=== PATIENT | male | born 1945 | race Caucasian/White ===

== ENCOUNTER 2019-09-30 08:56 | Outpatient (CLI) | payer MEDICARE, BC ==
[2019-09-30 15:20] LABS: #Eosinphils 0.2 thou/uL (0.0-0.7); #Lymphocytes 2.6 thou/uL (1.20-3.40); #Monocytes 0.7 thou/uL (0.11-0.59); #Neutrophils 4.1 thou/uL (1.40-6.50); %Basophils 0.4 % (0.0-1.0); %Eosinophils 2.2 % (0.0-10.0); %Lymphocytes 34.2 % (21.0-51.0); %Monocytes 9.1 % (0.0-10.0); %Neutrophils 54.1 % (42.0-75.0); Hemoglobin 15.2 g/dL (14.0-18.0); Mean Corpuscular HGB CONC 33.7 g/dL (32.0-36.0); Mean Corpuscular Hemoglobin 31.3 pg (27.0-31.0); Mean Corpuscular Volume 92.8 fL (78.0-98.0); Mean Platelet Volume 10.3 fL (7.4-10.4); Platelet Count 172 thou/uL (130-400); RBC Distribution Width 11.7 % (11.5-14.5); Red Blood Cell (RBC) Count 4.85 mill/uL (4.70-6.10); White Blood Cell (WBC) Count 7.6 thou/uL (4.8-10.8)
[2019-09-30 15:26] LABS: Prothrombin Time 13.1 SEC (12.0-14.7)
[2019-09-30 15:31] LABS: Bacteria/HPF None Seen HPF (None Seen); Bilirubin Negative (Negative); Blood, Urine Negative (Negative); Clarity Clear (Clear); Glucose, Urine (Dipstick) Normal (Negative); Leukocyte Negative Leu/uL (Negative); Nitrite Negative (Negative); Protein, Urine (Dipstick) Negative (Neg-Trace); RBC/HPF 0-3 HPF (0-3); Squamous Epithelial 0-3 HPF (0-3); Urobilinogen Normal mg/dL (Less than 2); WBC/HPF 0-3 HPF (0-3)
[2019-09-30 15:43] LABS: Anion Gap 12 mmol/L (10-20); BUN (Urea Nitrogen) 13 mg/dL (8.4-25.7); Calc. Creatinine Clearance 0 mL/min (70-130); Calcium 9.7 mg/dL (7.8-10.44); Carbon Dioxide 26 mmol/L (23-31); Chloride 105 mmol/L (98-107); Estimated GFR-MDRD Greater than 90; Glucose 95 mg/dL (83-110); Potassium 4.2 mmol/L (3.5-5.1); Sodium 139 mmol/L (136-145)
--- NOTE | 2019-09-30 17:00 | EKG ---
Test Reason : Blood Pressure : / mmHG Vent. Rate : 061 BPM Atrial Rate : 061 BPM P-R Int : 190 ms QRS Dur : 096 ms QT Int : 412 ms P-R-T Axes : 034 004 052 degrees QTc Int : 414 ms Normal sinus rhythm Possible Anterior infarct , age undetermined may be secondary to lead placement When compared with ECG of 13-SEP-2011 08:44, No significant change was found Confirmed by DR. Bebe SCOTT (3) on 09/30/2019 4:59:55 PM Referred By: IERO Confirmed By:DR. Bebe SCOTT
== END 2019-09-30 08:57 | disposition home or self-care (01) ==
LOC: LABBT 08:56
PROVIDERS: ATTEND Orthopaedic Surgery
DX: Z01.818 Encounter for other preprocedural examination (principal); M17.12 Unilateral primary osteoarthritis, left knee
CPT/HCPCS: 80048; 81001; 85025; 85610; 87081; 93005; 93010

== ENCOUNTER 2019-10-11 07:22 | Day surgery (SDC) | payer MEDICARE, BC ==
[2019-09-30 12:44] VITALS: BMI 29.3
[2019-10-11] MEDS ORDERED: Tranexamic Acid 1,000 MG/10 ML VIAL ONE ×2 (08:03→12:08)
[2019-10-11] MEDS ORDERED: Vancomycin 1.5 GRAM/300 ML BAG 1.5 GM/300 ML BAG ONE (08:04)
[2019-10-11] MEDS ORDERED: Sodium Chloride 0.9% 100 ML ONE (08:04)
[2019-10-11] MEDS ORDERED: Fentanyl 100 MCG/2 ML VIAL ONE ×3 (08:30→12:27)
[2019-10-11] MEDS ORDERED: Midazolam HCl 2 mg/2 ml Vial ONE (08:30)
[2019-10-11] MEDS ORDERED: Ondansetron PF 4 MG/2 ML Vial IVP PRN ×2 (08:52→11:51)
[2019-10-11] MEDS ORDERED: Ropivacaine HCl/PF 250 ML in Premix Bag 1 BAG NERVE BLCK SCH (08:52)
[2019-10-11] MEDS ORDERED: Promethazine HCl 25 MG/ML VIAL IM PRN ×2 (08:52→11:51)
[2019-10-11] MEDS ORDERED: traMADol HCl 50 MG TAB PO PRN ×2 (08:52)
[2019-10-11] MEDS ORDERED: HYDROcodone/Acetaminophen 10/325 mg Tablet PO PRN (08:52)
[2019-10-11] MEDS ORDERED: Zolpidem Tartrate 5 MG TAB PO PRN ×2 (08:52→11:51)
[2019-10-11] MEDS ORDERED: Fentanyl 100 MCG/2 ML VIAL SLOW IVP PRN (08:53)
[2019-10-11] MEDS ORDERED: Acetaminophen 325 MG TAB PO PRN ×2 (08:55→11:51)
[2019-10-11] MEDS ORDERED: Bupivacaine PF 0.5% 30 ML VIAL ONE (09:37)
[2019-10-11] MEDS ORDERED: methylPREDNISolone Acetate 40 mg/ml Vial ONE (10:07)
[2019-10-11] MEDS ORDERED: Lidocaine 1% (PF) 30 ML VIAL ONE (10:07)
[2019-10-11] MEDS ORDERED: diphenhydrAMINE 25 MG CAP PO PRN (11:51)
[2019-10-11] MEDS ORDERED: Tranexamic Acid 1,000 MG in Sodium Chloride 0.9% 100 ML IVPB SCH (12:00)
[2019-10-11] MEDS: Ketorolac Tromethamine 30 MG/ML VIAL IVP SCH ×3 (13:14→23:31)
[2019-10-11] MEDS: Sodium Chloride 0.9% 1,000 ML IV SCH ×2 (13:16→22:26)
[2019-10-11] MEDS ORDERED: Dexamethasone 20 MG/5 ML VIAL ONE (13:36)
[2019-10-11] MEDS ORDERED: PROPOFOL 200 MG/20 ML VIAL ONE (13:36)
[2019-10-11] MEDS ORDERED: Ketorolac Tromethamine 30 MG/ML VIAL ONE (13:36)
[2019-10-11] MEDS ORDERED: Ondansetron PF 4 MG/2 ML Vial ONE (13:36)
[2019-10-11] MEDS ORDERED: Bupivacaine HCl 0.5%/Epinephrine 1:200,000/PF 30 ml Vial ONE (13:36)
[2019-10-11] MEDS ORDERED: Ropivacaine 0.2% HCl/PF (40 MG/20 ML VIAL) ONE (13:36)
[2019-10-11] MEDS ORDERED: Lidocaine 1% PF 5 ML VIAL ONE (13:36)
[2019-10-11] MEDS: HYDROcodone/Acetaminophen 10/325 mg Tablet PO PRN (16:05)
[2019-10-11 16:23] LABS: #Lymphocytes 0.7 thou/uL (1.20-3.40); #Monocytes 0.2 thou/uL (0.11-0.59); #Neutrophils 12.6 thou/uL (1.40-6.50); %Basophils 0.1 % (0.0-1.0); %Eosinophils 0.2 % (0.0-10.0); %Lymphocytes 5.4 % (21.0-51.0); %Monocytes 1.4 % (0.0-10.0); Hemoglobin 14.8 g/dL (14.0-18.0); Mean Corpuscular Hemoglobin 32.1 pg (27.0-31.0); Mean Corpuscular Volume 94.6 fL (78.0-98.0); Platelet Count 185 thou/uL (130-400); RBC Distribution Width 11.6 % (11.5-14.5); Red Blood Cell (RBC) Count 4.62 mill/uL (4.70-6.10); White Blood Cell (WBC) Count 13.5 thou/uL (4.8-10.8)
--- NOTE | 2019-10-11 16:30 | CON ---
DATE OF CONSULTATION: 10/11/2019 TIME OF ASSESSMENT: 1500 hours. REASON FOR CONSULTATION: Medical management. HISTORY OF PRESENT ILLNESS: Mr. Del Rio is a pleasant 73-year-old gentleman who is status post left total knee replacement which was done today by Dr. Cardenas. The patient has had bilateral knee pain and previously received injections without improvement. He apparently underwent x-ray imaging that showed bilateral bone on bone arthritis in patellofemoral and medial compartments with varus deformity. The patient underwent surgery and is being referred to us for medical management. At this present time, he has no complaints. His pain is under good control. He denies having any nausea or vomiting. Denies any chest pain. No shortness of breath. No headaches or dizziness. Denies any abdominal pain. No urinary symptoms. All other review of systems negative. PAST MEDICAL HISTORY: Hypercholesterolemia. PAST SURGICAL HISTORY: 1. Left knee scope, meniscectomy 09/13/2011. 2. Left total knee replacement. SOCIAL HISTORY: The patient denies any history of tobacco use, alcohol consumption, or illicit drug use. He lives with his and is fully independent at baseline. ALLERGIES: NO KNOWN DRUG ALLERGIES. CURRENT MEDICATIONS: 1. Lipitor. 2. Indomethacin. 3. Lactobacillus. 4. Celoron-3 fatty acid/fish oil. 5. Cinnamon bark. PHYSICAL EXAMINATION: GENERAL: The patient appears well developed, well nourished, is in no acute distress. VITAL SIGNS: Temperature 97.7, pulse 74, respirations 16, O2 saturation 96% on room air, and blood pressure 143/90. HEENT: Normocephalic and atraumatic. Pupils are equal, round, reactive to light. Sclerae without icterus. Oropharynx is clear. NECK: Supple without lymphadenopathy. LUNGS: Clear to auscultation bilaterally without wheezes, rales, rhonchi. CARDIAC: Regular rate and rhythm. ABDOMEN: Soft, nontender, nondistended. Normoactive bowel sounds present. No guarding or rigidity. No renal angle tenderness. EXTREMITIES: No lower leg edema. Peripheral pulses present and equal bilaterally. LABORATORY DATA: Labs on September 30, 2019 showed the following; white count 7.6, hemoglobin 15, hematocrit 45, platelets 172, neutrophils 54.1%. PT 13.1, INR 1. Sodium 139, potassium 4.2, BUN 13, creatinine 0.82, GFR greater than 90. Urinalysis at that time was unremarkable. IMPRESSION AND PLAN: Mr. Del Rio is a very pleasant 73-year-old gentleman who is status post left total knee replacement. He has been referred for medical management. His comorbidities include only hypercholesterolemia. He has no history of coronary artery disease or hypertension. No diabetes. States he feels very good and is without any complaints. His pain is currently under good control. We will go ahead and resume his home medications. The patient is on antibiotics with cefazolin. We will obtain laboratory studies today. For gastrointestinal prophylaxis, we will start famotidine 20 mg b.i.d. The patient on mechanical SCDs for deep venous thrombosis prophylaxis. CODE STATUS: Full. Surrogate decision maker is his , Cristy Del Rio. The patient's case discussed with attending who agrees with plan of care as above. Thank you for this consultation. We will continue to follow this patient with you. Job ID: [id number]
[2019-10-11 16:44] LABS: Anion Gap 11 mmol/L (10-20); BUN (Urea Nitrogen) 14 mg/dL (8.4-25.7); Calc. Creatinine Clearance 120 mL/min (70-130); Calcium 9.7 mg/dL (7.8-10.44); Carbon Dioxide 29 mmol/L (23-31); Chloride 103 mmol/L (98-107); Estimated GFR-MDRD 90; Glucose 186 mg/dL (83-110); Potassium 4.1 mmol/L (3.5-5.1); Sodium 139 mmol/L (136-145)
[2019-10-11] MEDS: CEFAZOLIN 2 GM in Premix Bag 1 BAG IVPB SCH (18:02)
--- NOTE | 2019-10-11 18:13 | OP ---
DATE OF PROCEDURE: 10/11/2019 POSTOPERATIVE DIAGNOSIS: Bilateral knee arthritis, left worse than right. POSTOPERATIVE DIAGNOSIS: Bilateral knee arthritis, left worse than right. PROCEDURES PERFORMED: 1. Left total knee replacement using TreeRing pinless navigation. 2. Right knee corticosteroid injection. YARN REWINDER: Errol Garcia PA-C COMPLICATIONS: None. ANESTHESIA: The patient had general anesthetic as well as a preoperative block on the left side. IMPLANTS: To the left knee, [place] [employer] total knee system. The femur was a size 8 cruciate retaining femur. We used a size 7 primary tibial baseplate. We used a 7 x 11 mm CS X3 tibial bearing and asymmetric 38 x 11 X3 patella. DISPOSITION: He did go to recovery room in stable condition. INDICATIONS: This is an active 73-year-old male who has failed nonoperative treatment at this juncture and wishes for left knee replacement and a right knee injection. DESCRIPTION OF PROCEDURE: After all appropriate consent forms were explained and signed, he was taken back to the operative room and at this time was given general anesthetic. Once the level of anesthesia was appropriate, the right knee was cleaned with alcohol and 80 mg of Depo-Medrol with plain lidocaine was injected into the right knee without complication. Band-Aid was applied. A well-padded tourniquet was placed on the left leg, and the leg was then prepped and draped in standard surgical fashion. The limb was exsanguinated and tourniquet taken up to 300 mmHg. Midline incision was made with a 10 blade down through the skin and subcutaneous tissue. Bovie electrocautery was used to coagulate any brisk venous bleeding. A new blade was used to make a medial parapatellar arthrotomy. Small subperiosteal release was performed medially and excess fat pad was removed. The knee was flexed up to gain access to the femur. The femur was navigated and distal femoral resection was made. Epicondylar access was used to align our sizing jig and this was pinned in place. We sized our femur to be a size 8 cruciate retaining femur. 4:1 cutting block was applied and pinned. Anterior and posterior chamfer cuts were then made. We navigated out our proximal tibia and made our proximal tibial resection. Spreaders were used to remove any posterior osteophytes off the back of the femur as well as remaining meniscal tissue. A long alignment jimmie was then used to achieve correct rotation of our tibial baseplate and a size 7 primary tibial baseplate was chosen. This was pinned in place. We trialed the polyethylene and a 7 x 11 mm CS X3 tibial bearing polyethylene gave us full extension and good stability throughout range of motion. Two towel clips and a saw were used to cut our patella. Three lug nuts were drilled and asymmetric 38 x 11 X3 patella was trialed which sat nicely in the trochlear groove. We then drilled our femur and punched our tibia. All components were removed. The knee was thoroughly irrigated and dried. Cement was mixed into the cement gun on the back table. Components were then placed. The knee was held out in full extension until the cement had dried. All excess bone cement was removed. Multiple #2 Vicryl stitches as well as a Quill were used to close our extensor mechanism. 0 Quill followed by a running Monoderm was then used to close the skin. Surgicel glue was then used on the skin. Once this had dried, soft tissue dressing was applied to the limb, tourniquet was let down, and the toes pinked up nicely. The patient was then awakened and taken to the recovery room in stable condition. All counts were correct at the end of the case. The patient did receive preoperative IV antibiotics. The patient was injected with Marcaine for postoperative pain relief. Job ID: [id number] [facility]
[2019-10-11] MEDS ORDERED: Vancomycin 1.5 GRAM/300 ML BAG 1.5 GM in Premix Bag 1 BAG IVPB SCH (21:00)
[2019-10-11] MEDS: Aspirin 81 mg Enteric Coated Tablet PO SCH (21:28)
[2019-10-11] MEDS: Atorvastatin Calcium 40 MG TAB PO SCH (21:28)
[2019-10-11] MEDS: Famotidine/PF 20 mg/2ml Vial SLOW IVP SCH (21:28)
[2019-10-12] MEDS: CEFAZOLIN 2 GM in Premix Bag 1 BAG IVPB SCH (02:25)
[2019-10-12] MEDS: Ketorolac Tromethamine 30 MG/ML VIAL IVP SCH ×4 (05:15→23:26)
[2019-10-12 05:22] LABS: #Monocytes 1.3 thou/uL (0.11-0.59); #Neutrophils 12.7 thou/uL (1.40-6.50); %Eosinophils 0.1 % (0.0-10.0); %Lymphocytes 6.8 % (21.0-51.0); %Monocytes 8.5 % (0.0-10.0); %Neutrophils 84.6 % (42.0-75.0); Hemoglobin 12.9 g/dL (14.0-18.0); Mean Corpuscular Hemoglobin 31.2 pg (27.0-31.0); Mean Corpuscular Volume 94.5 fL (78.0-98.0); Mean Platelet Volume 9.5 fL (7.4-10.4); Platelet Count 173 thou/uL (130-400); RBC Distribution Width 11.5 % (11.5-14.5); Red Blood Cell (RBC) Count 4.12 mill/uL (4.70-6.10)
[2019-10-12 05:39] LABS: Anion Gap 13 mmol/L (10-20); BUN (Urea Nitrogen) 14 mg/dL (8.4-25.7); Calc. Creatinine Clearance 127 mL/min (70-130); Calcium 9.2 mg/dL (7.8-10.44); Carbon Dioxide 22 mmol/L (23-31); Chloride 107 mmol/L (98-107); Estimated GFR-MDRD Greater than 90; Glucose 171 mg/dL (83-110); Potassium 4.6 mmol/L (3.5-5.1); Sodium 137 mmol/L (136-145)
[2019-10-12 07:25] LABS: Hemoglobin A1c 5.5 % (4.0-6.0)
[2019-10-12] MEDS: Sodium Chloride 0.9% 1,000 ML IV SCH ×2 (07:39→19:19)
[2019-10-12] MEDS: Multivitamin W/ Minerals 1 TAB PO SCH (09:00)
[2019-10-12] MEDS: Ferrous Gluconate 324 MG TAB PO SCH ×2 (09:00→20:37)
[2019-10-12] MEDS: Senokot S 8.6-50 MG TAB PO SCH ×2 (09:00→20:36)
[2019-10-12] MEDS: Aspirin 81 mg Enteric Coated Tablet PO SCH ×2 (09:01→20:37)
[2019-10-12] MEDS: HYDROcodone/Acetaminophen 10/325 mg Tablet PO PRN ×4 (09:01→23:26)
[2019-10-12] MEDS: Famotidine/PF 20 mg/2ml Vial SLOW IVP SCH ×2 (09:01→20:36)
--- NOTE | 2019-10-12 11:26 | PDOC.HOSPP ---
- Subjective Encounter Date: 10/12/19 Encounter Time: 09:15 Subjective: no pain in his knee feels better not a diabetic, prior A1c was normal per patient - Objective Vital Signs & Weight: Vital Signs (12 hours) Temp Pulse Resp BP Pulse Ox 10/12/19 08:39 99.4 F 75 14 139/83 96 10/12/19 03:53 97.7 F 77 16 133/72 96 10/11/19 23:58 98.8 F 82 16 125/74 93 L Weight Weight 235 lb I&O: 10/11/19 10/12/19 10/13/19 06:59 06:59 06:59 Intake Total 1100 Output Total 1000 Balance 100 Result Diagrams: 10/12/19 05:05 10/12/19 05:05 Hospitalist ROS - Medication Medications: Active Medications Generic Name Dose Route Start Last Admin Trade Name Freq PRN Reason Stop Dose Admin Hydrocodone Bitart/Acetaminophen 2 tab 10/11/19 08:52 10/12/19 09:01 [place] 10/325 PO 2 tab Q4H PRN Administration PAIN (4-6) Aspirin 81 mg 10/11/19 21:00 10/12/19 09:01 Ecotrin PO 81 mg BID BARBIE Administration Atorvastatin Calcium 40 mg 10/11/19 21:00 10/11/19 21:28 Lipitor PO 40 mg HS BARBIE Administration Famotidine 20 mg 10/11/19 21:00 10/12/19 09:01 Pepcid SLOW IVP 20 mg Q12HR BARBIE Administration Ferrous Gluconate 324 mg 10/12/19 09:00 10/12/19 09:00 Fergon PO 324 mg BID BARBIE Administration Sodium Chloride 1,000 mls @ 100 mls/hr 10/11/19 12:00 10/12/19 07:39 Normal Saline 0.9% IV Not Given .Q10H BARBIE Iron/Minerals/Multivitamins 1 tab 10/12/19 09:00 10/12/19 09:00 Theragran M PO 1 tab DAILY BARBIE Administration Ketorolac Tromethamine 15 mg 10/11/19 12:00 10/12/19 05:15 Toradol IVP 10/13/19 06:01 15 mg Q6HR BARBIE Administration Senna/Docusate Sodium 2 tab 10/12/19 09:00 10/12/19 09:00 Senokot S PO 2 tab BID BARBIE Administration - Exam General Appearance: awake alert Eye: PERRL, anicteric sclera ENT: no oropharyngeal lesions, moist mucosa Neck: supple, no JVD Heart: RRR, no murmur Respiratory: no wheezes, no rales Gastrointestinal: soft, non-tender, non-distended, normal bowel sounds Extremities: no cyanosis, no edema Extremities - other findings: left knee post op changes Neurological: cranial nerve grossly intact, no focal deficits Psychiatric: normal affect, A&O x 3 Hosp A/P (1) Status post total knee replacement, left Code(s): Z96.652 - PRESENCE OF LEFT ARTIFICIAL KNEE JOINT Status: Acute (2) Dyslipidemia Code(s): E78.5 - HYPERLIPIDEMIA, UNSPECIFIED Status: Chronic (3) Glucose intolerance Code(s): E74.39 - OTHER DISORDERS OF INTESTINAL CARBOHYDRATE ABSORPTION Status : Suspected - Plan Hb A1c is normal, likely mild glucose intolerance with stress/surgery hemostable continue lipitor, asp bid, ropivacaine nr block, fentanyl, norco, ultram prn mobilize per ortho adv
--- NOTE | 2019-10-12 14:32 | PRG ---
DATE OF SERVICE: 10/12/2019 SUBJECTIVE: Mu is a 73-year-old male, postop day #1 left total knee arthroplasty. He is doing very well. His pain is incredibly well controlled, and he has ambulated up to 180 feet at this point. OBJECTIVE: VITAL SIGNS: Temperature 97.8, pulse 74, respiratory rate 16 and nonlabored, O2 saturation 97% on room air, and blood pressure is 145/73. GENERAL: He is alert and oriented to person, place, time, and situation; responsive and appropriate with examiner. EXTREMITIES: His incision is clean. There is no strikethrough. He is neurovascularly intact in the left lower extremity. LABORATORY DATA: Hemoglobin and hematocrit were 12.9 and 38.9. IMPRESSION: A 73-year-old male, postop day #1 left total knee arthroplasty, doing very well. PLAN: Continue current care. Expect discharge to home tomorrow. Job ID: [id number]
[2019-10-12] MEDS: Atorvastatin Calcium 40 MG TAB PO SCH (20:37)
[2019-10-13] MEDS: Sodium Chloride 0.9% 1,000 ML IV SCH ×2 (03:43→13:18)
[2019-10-13 05:01] LABS: Hemoglobin 11.3 g/dL (14.0-18.0); Mean Corpuscular HGB CONC 33.9 g/dL (32.0-36.0); Mean Corpuscular Volume 94.3 fL (78.0-98.0); Mean Platelet Volume 9.6 fL (7.4-10.4); Platelet Count 131 thou/uL (130-400); RBC Distribution Width 11.7 % (11.5-14.5); Red Blood Cell (RBC) Count 3.54 mill/uL (4.70-6.10); White Blood Cell (WBC) Count 9.6 thou/uL (4.8-10.8)
[2019-10-13] MEDS: Ketorolac Tromethamine 30 MG/ML VIAL IVP SCH (05:58)
[2019-10-13] MEDS: Ferrous Gluconate 324 MG TAB PO SCH (08:46)
[2019-10-13] MEDS: Aspirin 81 mg Enteric Coated Tablet PO SCH (08:46)
[2019-10-13] MEDS: Multivitamin W/ Minerals 1 TAB PO SCH (08:47)
[2019-10-13] MEDS: Senokot S 8.6-50 MG TAB PO SCH (08:47)
[2019-10-13] MEDS: Famotidine/PF 20 mg/2ml Vial SLOW IVP SCH (08:47)
[2019-10-13] MEDS: HYDROcodone/Acetaminophen 10/325 mg Tablet PO PRN ×2 (08:51→13:05)
--- NOTE | 2019-10-13 11:43 | DIS ---
DATE OF ADMISSION: 10/11/2019 DATE OF DISCHARGE: 10/13/2019 PRIMARY CARE PHYSICIAN: [facility] Call admission. DISCHARGE DISPOSITION: Home. PRIMARY DISCHARGE DIAGNOSIS: Status post left total knee replacement. SECONDARY DISCHARGE DIAGNOSES: Osteoarthritis, dyslipidemia. PRIMARY PROCEDURE/OPERATION: Left total knee replacement. RADIOLOGICAL INVESTIGATION: None. SIGNIFICANT LABORATORY DATA: WBC 9.6, hemoglobin 11.3, platelet 131. Sodium 137, potassium 4.6, BUN 14, creatinine 0.79, calcium 9.2, hemoglobin A1c 5.5. DISCHARGE MEDICATIONS: 1. Pain medication will defer to primary team. 2. Lipitor 40 mg p.o. at bedtime. 3. Cinnamon 500 mg p.o. daily. 4. Probiotic one capsule daily. 5. Fish oil 1000 mg p.o. daily. 6. Ibuprofen 200 mg p.o. q.6 hourly p.r.n. 7. Aspirin 81 mg p.o. b.i.d. as per primary team for DVT prophylaxis. CONTRAINDICATION: None. CODE STATUS: Full code. INPATIENT CONSERVATION WORKER: Dr. Cardenas was primary while in hospital. Sound Team was consulted for medical management. TEST RESULTS PENDING ON DISCHARGE: None. ALLERGIES: NO KNOWN DRUG ALLERGIES. DISCHARGE PLAN: Posthospital, the patient has appointment with Dr. Rashad Cardenas on October 20, 2019 at 1:15 p.m. The patient will make appointment with primary care physician. Home health arranged. HOSPITAL COURSE: A 73-year-old male with above-mentioned medical problem, who was admitted by Dr. Rashad Cardenas for left total knee replacement which was done on October 11, 2019. Postoperatively, hospitalist group was consulted for medical comanagement. The patient's medical problem remained stable. While in the hospital, he had leukocytosis that was also improved by the time of discharge without any signs of infection. He was having some elevated blood sugar, but hemoglobin A1c was normal and that is why we provided to watch on diet and follow up with primary care physician. At this point, he did not require any medication. The patient is seen and examined at bedside today. Plan of care discussed with the patient and his . The patient is planned for discharge later on today. PHYSICAL EXAMINATION: VITAL SIGNS: Today, temperature 98.4, pulse 77, respiratory rate 14, saturation 97% on room air, blood pressure 133/78. Weight 235 pounds. GENERAL: The patient is currently alert and awake. No acute distress. HEENT: Head; normocephalic, atraumatic. Eyes; pupils round, reactive to light. Extraocular muscle intact. ENT, oropharynx within normal limits. Moist mucous membranes. NECK: Supple. No JVD. No meningeal signs of irritation. LUNGS: Clear to auscultation without any rhonchi or rales. CARDIAC: S1 and S2, regular without any murmur. No gallop. No rub. ABDOMEN: Soft and benign. Bowel sounds present. Nontender. Nondistended. No organomegaly. No mass. EXTREMITIES: No edema. NEUROLOGIC: Nonfocal examination. The patient is planned for discharge today and we will sign off. Job ID: [id number]
--- NOTE | 2019-10-13 12:05 | PDOC.HOSPP ---
- Subjective Encounter Date: 10/13/19 Encounter Time: 08:00 Subjective: Patient seen and examined. No new complaints. No overnight events - Objective Vital Signs & Weight: Vital Signs (12 hours) Temp Pulse Resp BP Pulse Ox 10/13/19 08:46 97 10/13/19 07:46 98.4 F 77 14 133/78 97 10/13/19 03:36 98.3 F 70 16 133/81 96 Weight Admit Weight 235 lb Weight 235 lb I&O: 10/12/19 10/13/19 10/14/19 06:59 06:59 06:59 Intake Total 1100 750 Output Total 1000 400 Balance 100 350 Result Diagrams: 10/13/19 04:33 10/12/19 05:05 Hospitalist ROS - Review of Systems ENT: denies: ear pain, ear discharge, nose pain, nose discharge, nose congestion , mouth pain, mouth swelling, throat pain, throat swelling, other Respiratory: denies: cough, dry, shortness of breath, hemoptysis, SOB with excertion, pleuritic pain, sputum, wheezing, other Cardiovascular: denies: chest pain, palpitations, orthopnea, paroxysmal noc. dyspnea, edema, light headedness, other Gastrointestinal: denies: nausea, vomiting, abdominal pain, diarrhea, constipation, melena, hematochezia, other Genitourinary: denies: dysuria, frequency, incontinence, hematuria, retention, other Musculoskeletal: denies: neck pain, shoulder pain, arm pain, back pain, hand pain, leg pain, foot pain, other - Medication Medications: Active Medications Generic Name Dose Route Start Last Admin Trade Name Freq PRN Reason Stop Dose Admin Hydrocodone Bitart/Acetaminophen 2 tab 10/11/19 08:52 10/13/19 08:51 [place] 10/325 PO 2 tab Q4H PRN Administration PAIN (4-6) Aspirin 81 mg 10/11/19 21:00 10/13/19 08:46 Ecotrin PO 81 mg BID BARBIE Administration Atorvastatin Calcium 40 mg 10/11/19 21:00 10/12/19 20:37 Lipitor PO 40 mg HS BARBIE Administration Famotidine 20 mg 10/11/19 21:00 10/13/19 08:47 Pepcid SLOW IVP 20 mg Q12HR BARBIE Administration Ferrous Gluconate 324 mg 10/12/19 09:00 10/13/19 08:46 Fergon PO 324 mg BID BARBIE Administration Ropivacaine 250 ml/ Device 250 mls @ 10 mls/hr 10/11/19 08:52 10/12/19 12:42 NERVE BLCK 10/14/19 08:51 250 mls INF BARBIE Administration Sodium Chloride 1,000 mls @ 100 mls/hr 10/11/19 12:00 10/13/19 03:43 Normal Saline 0.9% IV Not Given .Q10H BARBIE Iron/Minerals/Multivitamins 1 tab 10/12/19 09:00 10/13/19 08:47 Theragran M PO 1 tab DAILY BARBIE Administration Senna/Docusate Sodium 2 tab 10/12/19 09:00 10/13/19 08:47 Senokot S PO 2 tab BID BARBIE Administration Tramadol HCl 100 mg 10/11/19 08:52 10/12/19 12:53 Ultram PO 100 mg Q6H PRN Administration Moderate Pain 4-6 - Exam General Appearance: NAD, awake alert Eye: PERRL, anicteric sclera ENT: normocephalic atraumatic, no oropharyngeal lesions Neck: supple, symmetric, no JVD Heart: RRR, no murmur, no gallops, no rubs Respiratory: CTAB, no wheezes, no rales, no ronchi Gastrointestinal: soft, non-tender, non-distended, normal bowel sounds Extremities: no cyanosis, no clubbing, no edema Skin: normal turgor, no lesions Neurological: no focal deficits Musculoskeletal: normal tone, normal strength Psychiatric: normal affect, normal behavior, A&O x 3 Hosp A/P (1) Status post total knee replacement, left Code(s): Z96.652 - PRESENCE OF LEFT ARTIFICIAL KNEE JOINT Status: Acute (2) Dyslipidemia Code(s): E78.5 - HYPERLIPIDEMIA, UNSPECIFIED Status: Chronic (3) Glucose intolerance Code(s): E74.39 - OTHER DISORDERS OF INTESTINAL CARBOHYDRATE ABSORPTION Status : Suspected - Plan old records reviewed/req, plan discussed w/ family 10/13/19 medication reviewed and continue to provide symptomatic care and supportive care see discharge soniay will sign off
[2019-10-13 13:12] VITALS: BP 162/81; TEMP 98.3
== END 2019-10-13 13:30 | disposition home or self-care (01) ==
LOC: SDC 07:22 → SURG B 11:52 → SDC 10-13 13:30
PROVIDERS: ATTEND Orthopaedic Surgery
PROC: 0SRD0J9 Replacement of Left Knee Joint with Synthetic Substitute, Cemented, Open Approach (ICD-10-PCS; principal; 2019-10-11)
PROC: 3E0U33Z Introduction of Anti-inflammatory into Joints, Percutaneous Approach (ICD-10-PCS; 2019-10-11)
PROC: 3E0T3BZ Introduction of Anesthetic Agent into Peripheral Nerves and Plexi, Percutaneous Approach (ICD-10-PCS; 2019-10-11)
PROC: 3E0T3BZ Introduction of Anesthetic Agent into Peripheral Nerves and Plexi, Percutaneous Approach (ICD-10-PCS; 2019-10-11)
DX: M17.0 Bilateral primary osteoarthritis of knee (principal); G89.18 Other acute postprocedural pain; E78.5 Hyperlipidemia, unspecified; E78.00 Pure hypercholesterolemia, unspecified; E74.39 Other disorders of intestinal carbohydrate absorption; Z79.82 Long term (current) use of aspirin; Z79.899 Other long term (current) drug therapy
CPT/HCPCS: 20610; 27447; 64445; 64448; 80048; 83036; 85025 ×2; 85027; 97116 ×3; 97139 ×5; 97150 ×2; 97530 ×2; 98961; C1713; C1776; 36415; J0670; J0690; J1030; J1100; J1885; J2001; J2250; J2405; J2704; J2795; J3010; J3490; S0020; S0028

== ENCOUNTER 2020-01-22 14:15 | Emergency (ER) | payer MEDICARE, BC ==
--- NOTE | 2020-01-22 15:29 | ULT ---
LEFT LOWER EXTREMITY DOPPLER VENOUS ULTRASOUND PROVIDED CLINICAL HISTORY: History of left total knee replacement on October 11, 2019; recent onset of left-sided calf pain that began 1 week ago but more intense today TECHNIQUE: Grayscale and color Doppler sonography with spectral analysis was performed of the left common femora l, femoral, popliteal, posterior tibial, greater saphenous and profunda femoral veins. FINDINGS: There is normal compression, flow and augmentation seen within the deep venous structures o f the left lower extremity. There is a 10.3 x 2.6 cm elliptical appearing mixed echogenicity lesion within the posterior proximal left foreleg soft tissues, just below the left knee. There is some internal vascularized flow seen within this mass lesion. IMPRESSION: No sonographic evidence for left lower extremity deep venous thrombosis. 10.3 cm elliptical, mixed echogenicity lesion within the posterior proximal left foreleg soft tissues . 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 The patient did have a mild-sized Cerrato's cyst on the comparison MRI of the left knee performed at [facility] on August 27, 2011. A soft tissue sarcomatous lesion cannot be entirely excluded. Would recommend orthopedic surgical referral and a follow-up MRI of the left foreleg with and without contrast for additional characterization.
== END 2020-01-22 16:50 | disposition home or self-care (01) ==
LOC: ERS 14:15
DX: M71.22 Synovial cyst of popliteal space [Baker], left knee (principal); Z96.652 Presence of left artificial knee joint

== ENCOUNTER 2022-10-23 10:39 | Outpatient (CLI) | payer MEDICARE, BC ==
[2022-10-23 12:19] LABS: INR-International Normal Ratio 1.1; Prothrombin Time 11.4 sec (9.5-12.1)
== END 2022-10-23 10:40 | disposition home or self-care (01) ==
LOC: LABBT 10:39
PROVIDERS: ATTEND Orthopaedic Surgery
DX: Z01.818 Encounter for other preprocedural examination (principal); M17.11 Unilateral primary osteoarthritis, right knee
CPT/HCPCS: 71046; 80048; 81003; 85025; 85610; 86850; 86900; 86901; 87081; 93005; 93010

== ENCOUNTER 2022-10-28 06:55 | Observation (INO) | payer MEDICARE, BC ==
[2022-10-23 12:02] LABS: Bilirubin Neg (Negative); Blood, Urine Negative (Negative); Clarity Clear (Clear); Glucose, Urine (Dipstick) Normal (Negative); Ketone, Urine Negative (Negative); Leukocyte Negative (Negative); Nitrite Negative (Negative); Protein, Urine (Dipstick) Negative (Neg-Trace); Urobilinogen Normal mg/dL (Less than 2); pH, Urine 6.5 (5.0-9.0)
[2022-10-23 12:15] LABS: #Eosinphils 0.2 10x3/uL (0.0-0.5); #Monocytes 0.7 10x3/uL (0.0-1.1); #Neutrophils 4.3 10x3/uL (1.5-8.4); %Basophils 0.4 % (0.0-2.0); %Eosinophils 2.9 % (0.0-6.0); %Lymphocytes 33.5 % (18.0-47.0); %Monocytes 8.6 % (0.0-10.0); %Neutrophils 54.5 % (40.0-75.0); Hemoglobin 15.3 g/dL (13.5-17.5); Mean Corpuscular HGB CONC 34.2 g/dL (32.0-36.0); Mean Corpuscular Hemoglobin 31.5 pg (27.0-33.0); Mean Platelet Volume 11.5 fl (7.4-10.4); Platelet Count 218 10x3/uL (150-450); RBC Distribution Width 12.8 % (11.5-14.5); Red Blood Cell (RBC) Count 4.86 10x6/uL (4.32-5.72); White Blood Cell (WBC) Count 7.9 10x3/uL (3.5-10.5)
[2022-10-23 12:26] LABS: Anion Gap 12 mmol/L (10-20); BUN (Urea Nitrogen) 16 mg/dL (8.4-25.7); Calc. Creatinine Clearance 0 mL/min (70-130); Carbon Dioxide 28 mmol/L (23-31); Chloride 104 mmol/L (98-107); Estimated GFR 90; Glucose 90 mg/dL (83-110); Potassium 4.4 mmol/L (3.5-5.1); Sodium 140 mmol/L (136-145)
[2022-10-25 13:08] VITALS: BMI 27.8
[2022-10-28] MEDS ORDERED: Midazolam HCl 2 mg/2 ml Vial ONE (07:12)
[2022-10-28] MEDS ORDERED: Bupivacaine PF 0.5% 30 ML VIAL ONE ×2 (07:12→13:28)
[2022-10-28] MEDS ORDERED: Fentanyl 100 MCG/2 ML VIAL ONE ×4 (07:12→13:43)
[2022-10-28] MEDS ORDERED: Tranexamic Acid 1,000 MG/10 ML VIAL ONE (07:43)
[2022-10-28] MEDS ORDERED: Vancomycin (BATCH) 1.5 GRAM/300 ML BAG ONE (07:43)
[2022-10-28] MEDS ORDERED: Sodium Chloride 0.9% 100 ML ONE ×2 (07:43→10:24)
[2022-10-28] MEDS ORDERED: Fentanyl 100 MCG/2 ML VIAL IV PRN (08:07)
[2022-10-28] MEDS ORDERED: traMADol HCl 50 MG TAB PO PRN ×2 (08:15)
[2022-10-28] MEDS ORDERED: HYDROcodone/Acetaminophen 10/325 mg Tablet PO PRN ×2 (08:15)
[2022-10-28] MEDS ORDERED: Promethazine HCl 25 MG/ML VIAL IM PRN ×3 (08:15→12:30)
[2022-10-28] MEDS ORDERED: Ondansetron PF 4 MG/2 ML Vial IVP PRN ×2 (08:15→12:18)
[2022-10-28] MEDS ORDERED: Ropivacaine 0.2% 550 ML 550 ML NERVE BLCK SCH (08:15)
[2022-10-28] MEDS ORDERED: Zolpidem Tartrate 5 MG TAB PO PRN ×2 (08:15→12:18)
[2022-10-28] MEDS ORDERED: Bupivacaine HCl 0.5%/Epinephrine 1:200,000/PF 30 ml Vial ONE (08:20)
[2022-10-28 09:17] LABS: SARS-CoV-2 NAA Rapid Test Not Detected (NotDetected)
[2022-10-28] MEDS ORDERED: fentaNYL PF 100 MCG/2 ML SYRINGE ONE (10:13)
[2022-10-28] MEDS ORDERED: CEFAZOLIN 2 GM VIAL ONE ×2 (10:24→10:25)
[2022-10-28] MEDS ORDERED: Dexamethasone 20 MG/5 ML VIAL ONE (10:34)
[2022-10-28] MEDS ORDERED: Ondansetron PF 4 MG/2 ML Vial ONE (10:34)
[2022-10-28] MEDS ORDERED: ePHEDrine 50 MG/ML VIAL ONE (10:34)
[2022-10-28] MEDS ORDERED: PROPOFOL 200 MG/20 ML VIAL ONE (10:34)
[2022-10-28] MEDS ORDERED: diphenhydrAMINE 25 MG CAP PO PRN (12:18)
[2022-10-28] MEDS ORDERED: Acetaminophen 325 MG TAB PO PRN (12:18)
[2022-10-28] MEDS ORDERED: Ondansetron HCl/PF 4 MG/2 ML Vial IVP PRN (12:30)
[2022-10-28] MEDS ORDERED: Tranexamic Acid 1,000 MG in Sodium Chloride 0.9% 100 ML IVPB SCH (12:30)
[2022-10-28] MEDS ORDERED: HYDROmorphone 2 MG/ML VIAL ONE (13:04)
[2022-10-28] MEDS ORDERED: CEFAZOLIN 2 GM in Sodium Chloride 0.9% 100 ML IVPB SCH (14:00)
[2022-10-28] MEDS ORDERED: HYDROmorphone 2 MG/ML VIAL SLOW IVP PRN (14:45)
[2022-10-28] MEDS: Ketorolac Tromethamine 30 MG/ML VIAL IVP SCH ×2 (15:23→17:05)
[2022-10-28] MEDS: Sodium Chloride 0.9% 1,000 ML IV SCH (15:23)
[2022-10-28] MEDS: CEFAZOLIN 2 GM in Sodium Chloride 0.9% 100 ML IVPB SCH (17:06)
[2022-10-28] MEDS ORDERED: Vancomycin HCl 1.5 GM in Sodium Chloride 0.9% 250 ML 300 ML IVPB SCH (18:00)
[2022-10-28] MEDS ORDERED: Vancomycin 1.5 GRAM/300 ML BAG 1.5 GM in Premix Bag 1 BAG IVPB SCH (18:00)
[2022-10-28] MEDS: Ferrous Gluconate 324 MG TAB PO SCH (20:20)
[2022-10-28] MEDS: Senokot S 8.6-50 MG TAB PO SCH (20:20)
[2022-10-28] MEDS: Aspirin 81 mg Enteric Coated Tablet PO SCH (20:21)
[2022-10-28] MEDS ORDERED: Atorvastatin Calcium 20 MG TAB PO SCH (21:00)
[2022-10-29] MEDS: Sodium Chloride 0.9% 1,000 ML IV SCH ×2 (00:23→08:28)
[2022-10-29] MEDS: Ketorolac Tromethamine 30 MG/ML VIAL IVP SCH ×2 (00:27→06:07)
[2022-10-29] MEDS: CEFAZOLIN 2 GM in Sodium Chloride 0.9% 100 ML IVPB SCH (02:20)
[2022-10-29 04:45] LABS: Hemoglobin 12.7 g/dL (14.0-18.0); Mean Corpuscular HGB CONC 33.5 g/dL (32.0-36.0); Mean Corpuscular Hemoglobin 31.4 pg (27.0-31.0); Mean Corpuscular Volume 93.9 fl (78.0-98.0); Mean Platelet Volume 9.5 fL (7.4-10.4); Platelet Count 175 10x3/uL (130-400); RBC Distribution Width 11.8 % (11.5-14.5); Red Blood Cell (RBC) Count 4.05 mill/uL (4.70-6.10); White Blood Cell (WBC) Count 13.3 10x3/uL (4.8-10.8)
[2022-10-29 07:50] VITALS: BP 130/74; TEMP 98
[2022-10-29] MEDS: Senokot S 8.6-50 MG TAB PO SCH (08:26)
[2022-10-29] MEDS: Aspirin 81 mg Enteric Coated Tablet PO SCH (08:27)
[2022-10-29] MEDS: Ferrous Gluconate 324 MG TAB PO SCH (08:27)
[2022-10-29] MEDS ORDERED: Magnesium Oxide 400 MG TAB PO SCH (09:00)
[2022-10-29] MEDS ORDERED: Fish Oil 1,000 MG CAP PO SCH (09:00)
[2022-10-29] MEDS ORDERED: Multivitamin W/ Minerals 1 TAB PO SCH (09:00)
[2022-10-29] MEDS ORDERED: Non-Formulary Item 1 EACH (Magnesium Oxide [Magnesium] 400 MG Tablet) PO SCH (09:00)
[2022-10-29] MEDS ORDERED: Non-Formulary Item 1 EACH (Omega-3 Fatty Acids/Fish Oil [Fish Oil 1,000 Mg Capsule] 1 CAP PO SCH (09:00)
== END 2022-10-29 10:31 | disposition home health service (06) ==
LOC: SDC 06:55 → SURG A 15:02 → INTOOBSV 15:02
PROVIDERS: ADMIT Orthopaedic Surgery; ATTEND Orthopaedic Surgery
PROC: 0SRC0J9 Replacement of Right Knee Joint with Synthetic Substitute, Cemented, Open Approach (ICD-10-PCS; principal; 2022-10-28)
DX: M17.11 Unilateral primary osteoarthritis, right knee (principal); E78.00 Pure hypercholesterolemia, unspecified; Z79.899 Other long term (current) drug therapy; Z96.652 Presence of left artificial knee joint; Z20.822 Contact with and (suspected) exposure to COVID-19
CPT/HCPCS: 20985; 27447; 80048; 81003; 85025; 85027; 86850; 86900; 86901; 87081; 96365; 96366; 96367; 96375; 96376; 97110 ×2; 97116 ×2; 97530; A4306; C1713; C1776; G0378 ×2; J3370; U0002; 36415; J1100; J1170; J1885; J2250; J2405; J2704; J2795; J3010; J3490; S0020

== ENCOUNTER 2024-03-11 16:44 | Observation (INO) | payer MEDICARE, BC ==
[2024-03-11] MEDS ORDERED: dilTIAZem 25 MG/5 ML VIAL ONE ×2 (17:40→18:06)
[2024-03-11 17:43] LABS: #Basophils Less than 0.03 10x3/uL (0.0-0.2); %Basophils 0.2 % (0.0-1.0); %Eosinophils 2.8 % (0.0-10.0); %Lymphocytes 34.8 % (21.0-51.0); %Monocytes 8.8 % (0.0-10.0); %Neutrophils 52.9 % (42.0-75.0); Hematocrit 47.7 % (42.0-52.0); Hemoglobin 16.5 g/dL (14.0-18.0); Mean Corpuscular HGB CONC 34.6 g/dL (32.0-36.0); Mean Corpuscular Hemoglobin 31.1 pg (27.0-31.0); Mean Platelet Volume 11.3 fL (7.4-10.4); Platelet Count 231 10x3/uL (130-400); RBC Distribution Width 11.9 % (11.5-14.5)
[2024-03-11 18:05] LABS: ALT (SGPT) 12 U/L (8-55); AST (SGOT) 17 U/L (5-34); Albumin 4.4 g/dL (3.4-4.8); Alkaline Phosphatase 70 U/L (40-110); Anion Gap 13 mmol/L (10-20); BUN (Urea Nitrogen) 15 mg/dL (8.4-25.7); Bilirubin, Total 0.4 mg/dL (0.2-1.2); Calc. Creatinine Clearance 0 mL/min (70-130); Calcium 10.1 mg/dL (7.8-10.44); Carbon Dioxide 26 mmol/L (23-31); Chloride 106 mmol/L (98-107); Estimated GFR 89; Globulin 3.1 g/dL (2.4-3.5); Glucose 94 mg/dL (83-110); Lipase 34 U/L (8-78); Magnesium 2.4 mg/dL (1.6-2.6); Potassium 4.3 mmol/L (3.5-5.1); Protein, Total 7.5 g/dL (5.8-8.1); Sodium 141 mmol/L (136-145)
[2024-03-11 18:08] LABS: Troponin I 0.011 ng/mL (< 0.028)
[2024-03-11] MEDS ORDERED: Acetaminophen 325 MG TAB PO PRN (20:04)
[2024-03-11] MEDS ORDERED: Ondansetron PF 4 MG/2 ML Vial IVP PRN (20:04)
[2024-03-11] MEDS ORDERED: Ondansetron ODT 4 MG TAB PO PRN (20:04)
[2024-03-11 21:38] VITALS: BMI 30.5
[2024-03-11] MEDS: Famotidine/PF 20 mg/2ml Vial SLOW IVP SCH (22:23)
[2024-03-11] MEDS: Famotidine 20 MG TAB PO SCH (22:23)
[2024-03-11] MEDS: Apixaban 5 MG TAB PO SCH (22:23)
[2024-03-11] MEDS: Sodium Chloride 0.9% 1,000 ML IV SCH (22:24)
[2024-03-12] MEDS: Metoprolol Tartrate 5 MG (5 mL) VIAL IVP SCH (01:32)
[2024-03-12 05:17] LABS: #Basophils 0.03 10x3/uL (0.0-0.2); %Basophils 0.3 % (0.0-1.0); %Eosinophils 2.8 % (0.0-10.0); %Lymphocytes 37.2 % (21.0-51.0); %Monocytes 9.3 % (0.0-10.0); %Neutrophils 50.1 % (42.0-75.0); Hematocrit 45.3 % (42.0-52.0); Hemoglobin 15.2 g/dL (14.0-18.0); Mean Corpuscular HGB CONC 33.6 g/dL (32.0-36.0); Mean Corpuscular Hemoglobin 30.8 pg (27.0-31.0); Mean Corpuscular Volume 91.7 fL (78.0-98.0); Mean Platelet Volume 11.2 fL (7.4-10.4); Platelet Count 230 10x3/uL (130-400); Red Blood Cell (RBC) Count 4.94 mill/uL (4.70-6.10)
[2024-03-12 05:21] LABS: Anion Gap 15 mmol/L (10-20); BUN (Urea Nitrogen) 14 mg/dL (8.4-25.7); Calc. Creatinine Clearance 113 mL/min (70-130); Calcium 9.4 mg/dL (7.8-10.44); Carbon Dioxide 22 mmol/L (23-31); Chloride 110 mmol/L (98-107); Estimated GFR 89; Glucose 108 mg/dL (83-110); Potassium 4.4 mmol/L (3.5-5.1); Sodium 143 mmol/L (136-145)
[2024-03-12 11:47] VITALS: BP 102/68; TEMP 97.4
[2024-03-12] MEDS ORDERED: PROPOFOL 0 ML ONE (12:21)
[2024-03-12] MEDS: Dronedarone HCl 400 MG TAB PO SCH (14:54)
[2024-03-12] MEDS ORDERED: Dronedarone HCl 400 MG TAB PO SCH (17:00)
[2024-03-13] MEDS ORDERED: Dronedarone HCl 400 MG TAB PO SCH (08:00)
== END 2024-03-12 16:15 | disposition home or self-care (01) ==
LOC: ERS 16:44 → 2SW 20:09
PROVIDERS: ADMIT Student in an Organized Health Care Education/Training Program; ATTEND Internal Medicine
DX: I48.92 Unspecified atrial flutter (principal); E78.5 Hyperlipidemia, unspecified; I11.0 Hypertensive heart disease with heart failure; I50.30 Unspecified diastolic (congestive) heart failure; Z79.82 Long term (current) use of aspirin; Z79.899 Other long term (current) drug therapy; Z96.653 Presence of artificial knee joint, bilateral
CPT/HCPCS: 71045; 80048; 80053; 83690; 83735; 83880; 84484; 85025 ×2; 93005 ×2; 96374; 99285; J7050; S0028; 36415; 93010; 96375; G0378; J2704

== ENCOUNTER 2024-04-05 06:00 | Day surgery (SDC) | payer MEDICARE, BC ==
[2024-03-31 11:04] VITALS: BMI 30.5
[2024-04-05 06:44] LABS: #Basophils Less than 0.03 10x3/uL (0.0-0.2); %Basophils 0.3 % (0.0-1.0); %Lymphocytes 36.7 % (21.0-51.0); %Neutrophils 49.7 % (42.0-75.0); Hematocrit 46.5 % (42.0-52.0); Hemoglobin 15.7 g/dL (14.0-18.0); Mean Corpuscular HGB CONC 33.8 g/dL (32.0-36.0); Mean Corpuscular Hemoglobin 31.2 pg (27.0-31.0); Mean Corpuscular Volume 92.4 fL (78.0-98.0); Mean Platelet Volume 11.9 fL (7.4-10.4); Platelet Count 156 10x3/uL (130-400); RBC Distribution Width 12.6 % (11.5-14.5); Red Blood Cell (RBC) Count 5.03 mill/uL (4.70-6.10)
[2024-04-05 06:57] LABS: INR-International Normal Ratio 1.1; PTT 31.4 sec (22.9-36.1); Prothrombin Time 14.2 sec (12.0-14.7)
[2024-04-05] MEDS ORDERED: Heparin 25,000 units/D5W 500 ML ONE (07:06)
[2024-04-05] MEDS ORDERED: Protamine Sulfate 50 MG/5 ML VIAL ONE (07:06)
[2024-04-05] MEDS ORDERED: Heparin 10,000 UNITS/ 10 ML VIAL ONE (07:06)
[2024-04-05] MEDS ORDERED: Isoproterenol 0.2 MG/1 ML AMP ONE (07:21)
[2024-04-05] MEDS ORDERED: PHENYLEPHRINE-NS 100 MCG/ML 10 ML SYRINGE ONE ×2 (08:05→09:08)
[2024-04-05] MEDS ORDERED: Lidocaine 1% PF 5 ML VIAL ONE (08:05)
[2024-04-05] MEDS ORDERED: PROPOFOL 200 MG/20 ML VIAL ONE (08:05)
[2024-04-05] MEDS ORDERED: Rocuronium Bromide 10 MG/ML (10ML VIAL) ONE (08:05)
[2024-04-05 08:14] LABS: Anion Gap 13 mmol/L (10-20); BUN (Urea Nitrogen) 20 mg/dL (8.4-25.7); Calc. Creatinine Clearance 114 mL/min (70-130); Calcium 9.1 mg/dL (7.8-10.44); Carbon Dioxide 22 mmol/L (23-31); Chloride 109 mmol/L (98-107); Estimated GFR 90; Glucose 110 mg/dL (83-110); Potassium 4.4 mmol/L (3.5-5.1); Sodium 140 mmol/L (136-145)
[2024-04-05] MEDS ORDERED: DOPamine 400 MG/D5W 250 ML 250 ML ONE (09:33)
[2024-04-05] MEDS ORDERED: SUGAMMADEX SODIUM 200 MG/2 ML VIAL ONE (09:59)
== END 2024-04-05 13:38 | disposition home or self-care (01) ==
LOC: SDC 06:00
PROVIDERS: ATTEND Internal Medicine Cardiovascular Disease
PROC: 4A023FZ Measurement of Cardiac Rhythm, Percutaneous Approach (ICD-10-PCS; principal; 2024-04-05)
DX: I48.3 Typical atrial flutter (principal); I48.19 Other persistent atrial fibrillation; I11.9 Hypertensive heart disease without heart failure; I35.1 Nonrheumatic aortic (valve) insufficiency; Z96.653 Presence of artificial knee joint, bilateral; Z79.01 Long term (current) use of anticoagulants; Z79.899 Other long term (current) drug therapy; Z87.891 Personal history of nicotine dependence
CPT/HCPCS: 80048; 85025; 85610; 85730; 93005; 93653; C1730; C1732; C1759; C1760; C1894; J1265; J1644 ×2; J2720; 36415; 93010; 93613; 93621; 93623; 93662; J2704